=== PATIENT | male | born 1945 | race Caucasian/White ===

== ENCOUNTER 2021-08-09 11:13 | Emergency (ER) | payer MEDICARE ==
[2021-08-09 11:36] VITALS: BP 148/71
--- NOTE | 2021-08-09 12:30 | ED Physician Documentation ---
History of Present Illness - Stated complaint Stated Complaint: RT KNEE PX - Chief complaint Chief Complaint: Ext Problem - Additonal information Additional information: 76-year-old male presents emergency department for evaluation of acute right knee pain sustained 12 days ago when he fell onto the knee. He did not think much of it but did have a superficial abrasion on the knee. He had been recovering normally however about 4 days after the fall he noted that he had some swelling around the knee as well as redness. Pain has persisted since then. No fevers. No history of previous injury to the knee. He is ambulatory with a nonantalgic gait. Review of Systems Constitutional: denies: Fever, Chills Eyes: reports: Reviewed and negative Nose: reports: Reviewed and negative Throat: reports: Reviewed and negative Respiratory: reports: Reviewed and negative GI: reports: Reviewed and negative Skin: reports: Abrasion (s) Musculoskeletal: reports: Joint pain (Right knee) PD PAST MEDICAL HISTORY - Present Medications Home Medications: Ambulatory Orders Medication Instructions Recorded Confirmed cephALEXin [Keflex] 500 mg PO Q6H #28 cap 08/09/21 - Allergies Allergies/Adverse Reactions: Allergies Allergy/AdvReac Type Severity Reaction Status Date / Time No Known Drug Allergies Allergy Verified 08/09/21 11:26 PD ED PE EXPANDED - General General: No acute distress - Extremities Extremities: Right knee (Full flexion and extension. No laxity with stress testing. Superficial abrasion noted on the patella with surrounding erythema and mild induration. No micromotion tenderness. No proximal fibula or tibial tenderness elicited. Normal gait without antalgia noted) Results - Vitals Vitals: Vital Signs - 24 hr 08/09/21 11:26 Temperature 37.0 C Heart Rate 88 Respiratory 16 Rate Blood Pressure 148/71 H O2 Saturation 100 Oxygen O2 Source Room air - Rads (name of study) right knee Radiology: Final report received, EMP read indepedently (no acute process) PD MEDICAL DECISION MAKING - ED course Complexity details: reviewed results, re-evaluated patient, considered differential, d/w patient ED course: 76-year-old male presents emergency department for evaluation of acute right knee pain that began 12 days ago after a fall. He initially did not think much of the knee pain but he did have a superficial abrasion. About 4 days after fall he developed some generalized swelling erythema and mild induration of the knee. Which has gotten progressively worse over the last week. No fevers or red streaking. My interpretation of the x-ray is no acute fracture or dislocation though he may be developing some early degenerative joint disease. However the superficial exam of the skin is most consistent with cellulitis. Patient has no fevers or micromotion tenderness my suspicion for septic arthritis is rather low. Patient will be started on cephalexin. Emergent return precautions were discussed. Departure - Departure Disposition: 01 Home, Self Care Clinical Impression: Cellulitis of right knee Right knee pain Qualifiers: Chronicity: acute Qualified Code(s): M25.561 - Pain in right knee Condition: Stable Record reviewed to determine appropriate education?: Yes Instructions: Cellulitis Dc Follow-Up: Provider,Other [Primary Care Provider] - Prescriptions: cephALEXin [Keflex] 500 mg PO Q6H #28 cap Comments: Raymond the x-ray of your knee does not show any obvious fractures or significant fluid collection however you do have a superficial infection on the skin of the knee. This is called cellulitis. I do recommend that you place a warm compress over the area that is red for 10 minutes 3 times a day. Also recommend antibiotic ointment on the scab. Please fill the prescription for the Keflex and begin taking daily. I would expect that with the antibiotics you have improved swelling and pain over the next 48 to 72 hours. If at any point you feel the symptoms are worsening, you have increased redness swelling fevers red streaking then please return to the ER for a second evaluation.
[2021-08-09] MEDS ORDERED: cephALEXin 250 MG CAPSULE PO STA (12:33)
--- NOTE | 2021-08-09 12:41 | XRAY Report ---
PROCEDURE: Knee 3 View RT INDICATIONS: pain after fall TECHNIQUE: 3 views of the right knee(s) were acquired. COMPARISON: None. FINDINGS: BONES/JOINT: No acute, displaced fracture or dislocation. Small suprapatellar joint effusion. Small s uperior patellar enthesophyte. Minimal osteophytosis of the patellofemoral compartment. SOFT TISSUES: A round calcific lesion is seen in the popliteal fossa. IMPRESSION: 1.No acute osseous abnormality. 2.Round calcific density in the popliteal fossa, of uncertain clinical significance. Reviewed by: Elbert Crouch MD on 08/09/2021 12:40 PM PDT Approved by: Elbert Crouch MD on 08/09/2021 12:40 PM PDT Station ID: [id number]
== END 2021-08-09 12:44 | disposition home or self-care (01) ==
LOC: ED 11:13
DX: L03.115 Cellulitis of right lower limb (principal); M25.561 Pain in right knee; S80.211A Abrasion, right knee, initial encounter; W18.30XA Fall on same level, unspecified, initial encounter
CPT/HCPCS: 73562; 99283; A9270